=== PATIENT | male | born 1980 | race Caucasian/White ===

== ENCOUNTER 2016-08-15 10:19 | Emergency (ER) | payer BC ==
[2016-08-15 10:44] LABS: HEMOGLOBIN 15.8 gm/dl (14.0-17.5); RED BLOOD COUNT 4.74 M/UL (4.20-5.50); WHITE BLOOD COUNT 9.5 K/UL (4.5-11.0)
[2016-08-15 11:11] LABS: BUN/CREATININE RATIO 10 (0-10)
== END 2016-08-15 17:05 | disposition home or self-care (01) ==
LOC: ER1 10:19
PROVIDERS: Family Medicine
DX: R07.89 Other chest pain (principal); F17.210 Nicotine dependence, cigarettes, uncomplicated
CPT/HCPCS: 36415; 71010; 80053; 81001; 82550; 82553; 83874; 84484; 85025; 93005; 99285